=== PATIENT | female | born 1980 | race Caucasian/White ===

== ENCOUNTER 2022-04-13 19:33 | Emergency (ER) | payer MEDICAID ==
[~2022-04-13] VITALS: Ht 162.6 cm; Wt 172.4 kg
[2022-04-13 19:46] VITALS: BP 235/80
--- NOTE | 2022-04-13 19:52 | NUR ---
PROVIDED ORANGE JUICE AND SANDWICH FOR GLUCOSE OF 52
--- NOTE | 2022-04-13 19:54 | NUR ---
PT TAKEN TO BED 7
--- NOTE | 2022-04-13 20:36 | NUR ---
Dr. Bermudez examining patient.
--- NOTE | 2022-04-13 20:36 | NUR ---
BS 66. Juices provided.
--- NOTE | 2022-04-13 22:30 | NUR ---
Patient discharged with v/s stable. Written and verbal after care instructions given and explained. Patient verbalized understanding. Ambulatory with steady gait. All questions addressed prior to discharge. Advised to follow up with PMD.
[2022-04-13 23:08] VITALS: BP 168/84
== END 2022-04-13 22:30 | disposition home or self-care (01) ==
LOC: MED 19:33
DX: E11.649 Type 2 diabetes mellitus with hypoglycemia without coma (principal)
CPT/HCPCS: 82948; 99283

== ENCOUNTER 2022-06-24 08:54 | Emergency (ER) | payer MEDICAID ==
[~2022-06-24] VITALS: Ht 157.5 cm; Wt 123.8 kg
[2022-06-24 09:07] VITALS: BP 159/95
--- NOTE | 2022-06-24 09:56 | NUR ---
41 Y/O FEMALE BIB SELF C/O COUGH, SORE THROAT, HEADACHE, REDNESS IN EYES X1 DAY, NOTED DISCHARGE ON THE EYELASHES AND REDNESS ON THE CONJUNCTIVA NKA PMH: DM, ASTHMA
--- NOTE | 2022-06-24 10:07 | NUR ---
DR NAVA AT PT SIDE FOR EVAL
[2022-06-24] MEDS ORDERED: ALBU0.0912 IH (10:31)
[2022-06-24] MEDS ORDERED: TAM75 PO (10:31)
[2022-06-24] MEDS ORDERED: POLY10SO OP (10:31)
--- NOTE | 2022-06-24 10:42 | NUR ---
Patient discharged with v/s stable. Written and verbal after care instructions given and explained. Patient alert, oriented and verbalized understanding of instructions. Ambulatory with steady gait. All questions addressed prior to discharge. ID band removed. Patient advised to follow up with PMD. Rx of ALBUTEROL, POLYTRIM EYE DROPS, TAMIFLU given. Patient educated on indication of medication including possible reaction and side effects. Opportunity to ask questions provided and answered.
== END 2022-06-24 10:42 | disposition home or self-care (01) ==
LOC: MED 08:54
DX: J06.9 Acute upper respiratory infection, unspecified (principal); Z20.822 Contact with and (suspected) exposure to COVID-19; H10.9 Unspecified conjunctivitis; J45.909 Unspecified asthma, uncomplicated; I10 Essential (primary) hypertension; E11.9 Type 2 diabetes mellitus without complications; Z79.4 Long term (current) use of insulin; Z79.899 Other long term (current) drug therapy
CPT/HCPCS: 99283